=== PATIENT | male | born 1960 | race Caucasian/White ===

== ENCOUNTER 2016-05-10 17:51 | Emergency (ER) | payer BC ==
[~2016-05-10] VITALS: Ht 160 cm; Wt 89.0 kg
[2016-05-10 17:53] VITALS: Ht 160 cm; Wt 89.0 kg
[2016-05-10] MEDS ORDERED: SOD CHLORIDE 0.9% 1,000 ML IV STA (20:47)
[2016-05-10] MEDS ORDERED: LORAZEPAM 2 MG INJ IV ONE (21:00)
[2016-05-10] MEDS ORDERED: SOD CHLORIDE 0.9% 1,000 ML IV ONE (21:00)
[2016-05-10 21:09] LABS: ADD SCAN DIFF NO
[2016-05-10 21:11] LABS: BASOPHILS % 0.3 % (0.0-2.0); EOSINOPHILS # 0.2 10^3/ul (0.0-0.5); EOSINOPHILS % 2.1 % (0.0-7.0); HEMATOCRIT 45.1 % (42.0-52.0); HEMOGLOBIN 15.9 g/dl (14.0-18.0); LYMPHOCYTES # 3.1 10^3/ul (0.8-2.9); LYMPHOCYTES % 35.1 % (15.0-51.0); MEAN CORPUSCULAR HEMOGLOBIN 30.8 pg (29.0-33.0); MEAN CORPUSCULAR HGB CONC 35.3 g/dl (32.0-37.0); MEAN CORPUSCULAR VOLUME 87.2 fl (82.0-101.0); MEAN PLATELET VOLUME 11.1 fl (7.4-10.4); MONOCYTE # 0.6 10^3/ul (0.3-0.9); MONOCYTES % 6.9 % (0.0-11.0); NEUTROPHIL # 4.8 10^3/ul (1.6-7.5); NEUTROPHILS % 55.1 % (39.0-77.0); PLATELET COUNT 279 10^3/UL (140-415); RED BLOOD COUNT 5.17 10^6/ul (4.70-6.10); RED CELL DISTRIBUTION WIDTH 12.2 % (11.5-14.5); WHITE BLOOD COUNT 8.7 10^3/ul (4.8-10.8)
[2016-05-10 21:15] LABS: CHLORIDE 104 mmol/L (97-110)
[2016-05-10 21:16] LABS: POTASSIUM 4.1 mmol/L (3.5-5.1); SODIUM 141 mmol/L (135-144)
[2016-05-10 21:18] LABS: ALBUMIN/GLOBULIN RATIO 1.42; ALKALINE PHOSPHATASE 118 IU/L (42-121); ANION GAP 17 (8-16); ASPARTATE AMINO TRANSFERASE 35 IU/L (15-46); BILIRUBIN,INDIRECT 0.5 mg/dl (0-1.1); BILIRUBIN,TOTAL 0.5 mg/dl (0.2-1.3); CARBON DIOXIDE 24 mmol/L (21-31); CREATININE 0.93 mg/dl (0.61-1.24); TOTAL PROTEIN 8.5 g/dl (6.1-8.1)
[2016-05-10 21:19] LABS: ALANINE AMINOTRANSFERASE 45 IU/L (13-69); BLOOD UREA NITROGEN 21 mg/dl (7-20); CALCIUM 10.1 mg/dl (8.4-10.2); GLUCOSE 113 mg/dl (70-220)
[2016-05-10] MEDS ORDERED: IBUP-1542 PO (21:24)
[2016-05-10 21:53] LABS: TROPONIN-I < 0.012 ng/ml (0.00-0.12)
[2016-05-10 22:03] VITALS: BP 110/73; PULSE 74; RESP 17
--- NOTE | 2016-05-10 22:04 | ERD ---
ER Documentation Chief Complaint Date/Time DATE: 05/10/16 TIME: 21:59 Chief Complaint LEFT ARM NUMBNESS X 1 WEEK, NOW RIGHT ARM, TINGLING ON CHIN ROS All systems reviewed and are negative except as per history of present illness. Medications Home Meds Active Scripts Ibuprofen* (Motrin*) 600 Mg Tab, 600 MG PO Q8 for PAIN AND/OR INFLAMMATION, #30 TAB Prov:BRIDGER SMITH MD 05/10/16 Allergies Allergies: Coded Allergies: Penicillins (Verified Allergy, Mild, 12/07/15) carisoprodol (Verified Allergy, Mild, 12/07/15) codeine (Verified Allergy, Mild, 12/07/15) PMhx/Soc Hypertension, diabetes mellitus, hypercholesterolemia, anxiety Medical and Surgical Hx: pt denies Surgical Hx Hx Miscellaneous Medical Probl: Yes (DM, high cholesterol) Hx Alcohol Use: No Hx Substance Use: No Hx Tobacco Use: No (occasional cigars) Smoking Status: Current some day smoker FmHx Family History: No diabetes Physical Exam Vitals Vital Signs Date Time Temp Pulse Resp B/P Pulse Ox O2 Delivery O2 Flow Rate FiO2 05/10/16 21:12 72 16 110/70 05/10/16 17:53 98.1 80 18 124/76 99 Physical Exam GENERAL: Well-developed, well-nourished, well-hydrated, in no apparent distress , looks nontoxic in appearance HEENT: Moist mucous membranes, pink conjunctiva, no cervical spine tenderness or step-off deformities, no goiter, no jaundice or icterus, extraocular movements intact without pain. No submandibular induration, and no pharyngeal erythema NEURO: Alert and oriented 3, cranial nerves II through XII intact bilaterally, pupils equal round reactive to light, no focal deficits or facial asymmetry, sensation intact distally Strength 5/5 in upper and lower extremities bilaterally CARDIAC: Regular rate and rhythm, no murmurs rubs or gallops LUNGS: Clear bilaterally no wheezing crackles or stridor ABDOMEN: Soft nontender, no guarding, no rigidity, no rebound, no psoas sign no obturator sign. Normoactive bowel sounds SKIN: Warm and dry to touch, no abrasions, contusions, or hematomas, no lacerations, no ecchymosis, no target lesions, and without ulcers EXTREMITIES: No clubbing cyanosis or edema, calves are bilaterally symmetrical, no Homans sign, no popliteal cord sign. Distal pulses equal and bilateral PSYCH: Normal affect without agitation or irritability Result Diagram: 05/10/16202905/10/16 2030 Results 24 hrs Laboratory Tests Test 05/10/16 20:30 White Blood Count 8.710^3/ul Red Blood Count 5.1710^6/ul Hemoglobin 15.9g/dl Hematocrit 45.1% Mean Corpuscular Volume 87.2fl Mean Corpuscular Hemoglobin 30.8pg Mean Corpuscular Hemoglobin Concent 35.3g/dl Red Cell Distribution Width 12.2% Platelet Count 00610^3/UL Mean Platelet Volume 11.1fl Neutrophils % 55.1% Lymphocytes % 35.1% Monocytes % 6.9% Eosinophils % 2.1% Basophils % 0.3% Nucleated Red Blood Cells % 0.0/100WBC Neutrophils # 4.810^3/ul Lymphocytes # 3.110^3/ul Monocytes # 0.610^3/ul Eosinophils # 0.210^3/ul Basophils # 0.010^3/ul Nucleated Red Blood Cells # 0.010^3/ul Sodium Level 141mmol/L Potassium Level 4.1mmol/L Chloride Level 104mmol/L Carbon Dioxide Level 24mmol/L Anion Gap 17 Blood Urea Nitrogen 21mg/dl Creatinine 0.93mg/dl Glucose Level 113mg/dl Calcium Level 10.1mg/dl Total Bilirubin 0.5mg/dl Direct Bilirubin 0.00mg/dl Indirect Bilirubin 0.5mg/dl Aspartate Amino Transf (AST/SGOT) 35IU/L Alanine Aminotransferase (ALT/SGPT) 45IU/L Alkaline Phosphatase 118IU/L Troponin I < 0.012ng/ml Total Protein 8.5g/dl Albumin 5.0g/dl Globulin 3.50g/dl Albumin/Globulin Ratio 1.42 Lipase 146U/L Current Medications Medications (Trade) Dose Ordered Sig/Lindsay Route PRN Reason Start Time Stop Time Status Last Admin Dose Admin Lorazepam 0.5 mg 0.5 mg ONCE ONCE IV 05/10/16 21:00 05/10/16 21:01 DC 05/10/16 21:11 Sodium Chloride 1,000 ml @ 1,000 mls/hr Q1H ONCE IV 05/10/16 21:00 05/10/16 21:59 05/10/16 21:11 Sodium Chloride (NS) 1,000 ml @ 1,000 mls/hr Q1H STAT IV 05/10/16 20:47 05/10/16 21:46 DC 05/10/16 21:11 Procedures/MDM IV line was established patient was placed on surveillance monitor rhythm strip revealed a sinus rhythm at about 80 bpm with upright P and T waves. Patient was afebrile. EKG performed, read by me: 76 bpm, normal sinus rhythm, normal axis, no acute ST segment changes, narrow QRS complex, with good R-wave progression in precordial leads. I administered 1 L normal saline intravenously and lorazepam 0.5 mg IV 1 for his symptoms with good improvement. CBC was normal, electrolytes revealed dehydration with a BUN/creatinine of 21/ 0.9, liver function tests are normal, troponin was negative. Paresthesias have a broad differential although in this patient's case diabetic neuropathy is definitely an concern as well as hyperventilation syndrome secondary to chronic anxiety. I do not suspect stroke as patient has not other signs or symptoms. He does have a follow-up appointment with his police or patrol park officer and the patient and his who was at the bedside assured me that the police or patrol park officer will follow up with a hemoglobin A1c that I ordered. Differential diagnoses considered, included but not limited to acute coronary syndrome, pulmonary embolism, aortic dissection, abdominal aortic aneurysm, sepsis, stroke, meningitis, encephalitis, pneumonia, appendicitis, cholecystitis , bowel obstruction, pyelonephritis, nephrolithiasis, cystitis, as well as metabolic, hematologic, and electrolyte abnormalities. As well as abscess, cellulitis, fractures, and dislocations. Patient feels much better at this time, and vital signs are normal, symptoms have improved. I did give strict instructions to return to the ED if symptoms continue or worsen, patient will otherwise follow-up with primary care physician. Patient understood instructions and agreed to plan. Departure Diagnosis: Primary Impression: Paresthesia Additional Impressions: Hypertension Hypertension type: essential hypertension Qualified Code: I10 - Essential hypertension Diabetes mellitus Diabetes mellitus type: type 2 Diabetes mellitus complication status: with neurologic complications Diabetes mellitus complication detail: with polyneuropathy Diabetes mellitus exterminator termite insulin use: with exterminator termite use Qualified Code: E11.42 - Type 2 diabetes mellitus with diabetic polyneuropathy , with long-term current use of insulin Condition: Good Patient Instructions: Neuropathy, Peripheral, Paraesthesias BRIDGER SMITH MD May 10, 2016 22:04
== END 2016-05-10 22:30 | disposition home or self-care (01) ==
LOC: E/R 17:51
DX: R20.2 Paresthesia of skin (principal); I10 Essential (primary) hypertension; E11.42 Type 2 diabetes mellitus with diabetic polyneuropathy; F17.210 Nicotine dependence, cigarettes, uncomplicated
CPT/HCPCS: 36415; 80053; 83036; 83690; 84484; 85025; 93005; 96374; 99284; J2060; J7030

== ENCOUNTER 2017-04-17 10:47 | Emergency (ER) | END 2017-04-17 11:55 | disposition home or self-care (01) ==